=== PATIENT | female | born 1965 | race Caucasian/White ===

== ENCOUNTER 2020-07-27 06:18 | Day surgery (SDC) | payer BC ==
[~2020-07-27] VITALS: Ht 157.5 cm; Wt 70.0 kg
[~2020-07-27 06:18] MED LIST: ASPIR-LOW81 MG PO; LEVAQUIN500 MG PO; METOPROLOL SUC200 MG PO; MILK THISTLE500 MG PO; PRILOSEC OTC20 MG PO; VOLTAREN100 GM TOP
--- NOTE | 2020-07-27 06:41 | NUR ---
FELL APPROX 2 WEEKS AGO STATES IT WAS CAUSED BY MEDICATIONS SHE LONGER TAKES.
--- NOTE | 2020-07-27 07:52 | NUR ---
07/27/20 8474 Cathryn Vyas 8612 PATIENT ARRIVES TO PACU AWAKE. DENIES PAIN OR NAUSEA. RESP EVEN AND UNLABORED, ROOM AIR SATS 100%. TAKING SIPS OF WATER.
--- NOTE | 2020-07-27 08:53 | OR ---
[facility] [address] [place], [place] [address] Signed DATE OF OPERATION: 07/27/2020 SURGEON: Vinayak Sharma MD PREOPERATIVE DIAGNOSES: 1. Epigastric abdominal pain. 2. Nausea and vomiting. POSTOPERATIVE DIAGNOSIS: Small hiatal hernia. PROCEDURE: EGD with CLOtest and biopsies of the antrum. ESTIMATED BLOOD LOSS: None. INDICATIONS: Gracy is a 54-year-old female, asked to see me for upper endoscopy. She has epigastric abdominal pain with nausea and vomiting over the last three years. She has tried various self medications without much success. She gave up sucralfate and Nexium. It sounds like maybe she is still on Prilosec. She does not feel like anything is working. She did go through a colonoscopy back in 2017. Consequently, she is somewhat familiar with this idea of an upper endoscopy. In the office, I gave her a pamphlet on upper endoscopy and we looked at that together along with the risks including, but not limited to gas bloating, crampy abdominal pain, bleeding, perforation requiring surgery, and missed diagnosis. We also discussed the need for the IV conscious sedation, she had expressed understanding and wished to proceed. DESCRIPTION OF PROCEDURE: Gracy was taken into our endoscopy suite and placed in the supine semi-recumbent position. The posterior oropharynx was anesthetized with lidocaine spray. A bite block was utilized for the case. She utilized 9 mg of Versed and 125 mcg of fentanyl to cover the case. Even then she was awakened, looking around during the procedure. The adult gastroscope had been introduced and advanced under direct visualization of the camera into the third portion of the duodenum without difficulty. The duodenum and pyloric channel were unremarkable. Essentially, the stomach was unremarkable. We went ahead and took a biopsy of the antrum for pathologic review as well as CLOtest. There were no ulcerations. There was no gastritis. Upon retroflexion of scope, she does have a small hiatal hernia. There was no gastric or esophageal varices. The scope was then Electronically Signed By: VINAYAK SHARMA MD 07/27/20 0853 PATIENT NAME: GRACY JUAREZ OPERATIVE REPORT DATE OF : 61 REPORT #: [id number] PHYSICIAN: VINAYAK SHARMA MD PCP: AGUSTIN FARMER MD REPORT IS CONFIDENTIAL AND NOT TO BE RELEASED WITHOUT AUTHORIZATION [facility] [address] [place], [place] [address] Signed withdrawn up through the area of GE junction, which was compliant without stricture. She has minimal disruption to the Z-line. There was no Lerner's mucosa and no distal esophagitis. The middle and upper esophagus were unremarkable. After this, the gas has been suctioned out and the gastroscope removed. Gracy tolerated the procedure quite well. RECOMMENDATIONS: I will see Gracy back in my office in 7 to 14 days to review her results. She might also consider cutting down on the alcohol and smoking. Vinayak Sharma MD ALB/MODL /[id number] cc: MD Vinayak Chi MD Copies: AGUSTIN FARMER MD, ANDREW L MD ~ Electronically Signed By: VINAYAK SHARMA MD 07/27/20 0853 PATIENT NAME: GRACY JUAREZ ANN OPERATIVE REPORT DATE OF : 61 REPORT #: [id number] PHYSICIAN: VINAYAK SHARMA MD PCP: AGUSTIN FARMER MD REPORT IS CONFIDENTIAL AND NOT TO BE RELEASED WITHOUT AUTHORIZATION
--- NOTE | 2020-07-27 10:14 | NUR ---
PT ALERT, ORIENTED AND PLEASANT. PT SEEMS AT EASE, ALL QUESTIONS ASKED WERE ANSWERED. PT MENTIONED THAT HER WILL BE HERE TO TAKE HOME AFTER DC. PT REQUESTED PRAYER, WILL FOLLOW NEEDED
== END 2020-07-27 08:15 | disposition home or self-care (01) ==
LOC: OPS 06:18 → DS 06:18 → OPS 06:45 → DS 07:45 → OPS 08:15
PROVIDERS: ATTEND Colon & Rectal Surgery
PROC: 0DB78ZX Excision of Stomach, Pylorus, Via Natural or Artificial Opening Endoscopic, Diagnostic (ICD-10-PCS; principal; 2020-07-27 06:45)
DX: K44.9 Diaphragmatic hernia without obstruction or gangrene (principal); I10 Essential (primary) hypertension; F17.210 Nicotine dependence, cigarettes, uncomplicated; K21.9 Gastro-esophageal reflux disease without esophagitis; Z86.010 Personal history of colon polyps; Z79.82 Long term (current) use of aspirin; Z79.899 Other long term (current) drug therapy
CPT/HCPCS: 86677; G0500; J2250; J3010; J7121

== ENCOUNTER 2020-10-03 08:10 | Emergency (ER) | payer BC ==
[~2020-10-03] VITALS: Ht 157.5 cm; Wt 69.9 kg
[2020-10-03] MEDS ORDERED: ONDANSETRON ODT4 MG PO (15:46)
[2020-10-03] MEDS ORDERED: HYDROCODON-ACE1 EA10 PO (15:46)
== END 2020-10-03 15:55 | disposition home or self-care (01) ==
LOC: ED 08:10
DX: K31.89 Other diseases of stomach and duodenum (principal); D64.9 Anemia, unspecified; K80.20 Calculus of gallbladder without cholecystitis without obstruction; F17.200 Nicotine dependence, unspecified, uncomplicated; Z88.0 Allergy status to penicillin; Z79.899 Other long term (current) drug therapy; Z79.82 Long term (current) use of aspirin
CPT/HCPCS: 74177; 80053; 82378; 83690; 85025; 86301; 99284-25; Q9967

== ENCOUNTER 2020-10-17 06:23 | Day surgery (SDC) | payer BC, SELFPAY ==
[~2020-10-17] VITALS: Ht 157.5 cm; Wt 68.0 kg
[~2020-10-17 06:23] MED LIST changes: +HYDROCODON-ACE1 EA10 PO; +ONDANSETRON ODT4 MG PO
--- NOTE | 2020-10-17 08:09 | NUR ---
10/17/20 0809 Cathryn Vyas 0801 PATIENT ARRIVES TO PACU SLEEPING, AWAKENS WITH VERBAL STIMULI, BACK TO SLEEP WHEN NOT STIMULATED. RESP EVEN AND UNLABORED, NC AT 2 LITERS. 0805 PATIENT AWAKE OFF/ON. RESP EVEN AND UNLABORED, NC OFF.
--- NOTE | 2020-10-17 09:42 | OR ---
[facility] [address] [place], [place] [address] Signed DATE OF OPERATION: 10/17/2020 SURGEON: Vinayak Sharma MD PREOPERATIVE DIAGNOSES: 1. Epigastric abdominal pain. 2. Ultrasound and CT scan concerning for possible duodenal mass/pancreatic mass. POSTOPERATIVE DIAGNOSES: 1. Duodenal mass, 2nd portion. 2. Small hiatal hernia. PROCEDURES: EGD with CLOtest and biopsies of the duodenal mass, pyloric bulb, and antrum. ESTIMATED BLOOD LOSS: None. INDICATIONS: Gracy is a 55-year-old female, who came back in July of 2020 for her upper endoscopy. She had a small hiatal hernia at that time. The ultrasound showed what may have been air or vascular streaking in her liver. Common bile duct was normal at 2.5 mm. Pancreatic duct was normal at 2.2 mm. The gallbladder wall seemed to be thickened and irregular with some debris. We had made plans to proceed with her gallbladder surgery with an intraoperative cholangiogram rather than to a CT scan at that time. We knew if that was abnormal, she was going to need a CT scan. She was actually scheduled for her surgery tomorrow, but had worsening epigastric abdominal pain. She had been to the emergency room. CT scan on October 03, 2020 showed air in the gallbladder along with the bile ducts and a very thickened abnormal looking duodenum, which is contiguous with the head of the pancreas. No obvious pancreatic mass on that particular CT scan. She had been down to [place] expeditiously to see her hepatobiliary surgeon, Dr. Cristino Dutta. He asked her to have an expeditious repeat upper endoscopy here in [place], [place]. Therefore, she presents today in that regard. She is quite familiar with upper endoscopy. She knows there is risk including, but not limited to gas bloating, crampy abdominal pain, bleeding, perforation requiring surgery, and missed diagnosis. She also has done well with Versed and fentanyl in the past. She had expressed understanding and wished to proceed. DESCRIPTION OF PROCEDURE: Gracy was taken into our endoscopy suite and placed in the supine semi-recumbent Electronically Signed By: VINAYAK SHARMA MD 10/17/20 0942 PATIENT NAME: GRACY JUAREZ OPERATIVE REPORT DATE OF : 61 REPORT #: [id number] PHYSICIAN: VINAYAK SHARMA MD PCP: AGUSTIN BOWEN MD REPORT IS CONFIDENTIAL AND NOT TO BE RELEASED WITHOUT AUTHORIZATION [facility] [address] [place], [place] [address] Signed position. She was given a total of 6 mg of Versed and 100 mcg of fentanyl to cover the case. Lidocaine spray was utilized to anesthetize the posterior oropharynx. A bite block was placed during the case. The adult gastroscope had been introduced and advanced quite readily out into the 2nd portion of the duodenum under direct visualization of camera without difficulty. We encountered some abnormal protrusion of the duodenum and just beyond that we could see an ulcerated area and just to the left of that we could see what looks like a mass. It is very flat and without any normal mucosa. We took a couple of biopsies of the mass in the ulcerated area for pathologic review. The scope was then slowly withdrawn. We never could specifically see the ampulla of Vater with our forward viewing scope. The pyloric bulb was unremarkable along with the antrum. We went ahead and took biopsies of the pyloric bulb and antrum for pathologic review. In addition, a biopsy came out of the antrum for CLOtest. The incisura body and fundus of the stomach were unremarkable. Upon retroflexion of the scope, she does have a small hiatal hernia. The scope was withdrawn up through area of the GE junction, which was compliant without stricture. She has minimal disruption to the Z-line. No obvious Lerner's mucosa. Her distal middle and upper esophagus were unremarkable. After this, the gas was suctioned out and the gastroscope removed. Gracy tolerated the procedure quite well. RECOMMENDATIONS: I will see Gracy back in my office in 7 to 10 days to review her results. Vinayak Sharma MD ALB/MODL /[id number] cc: Agustin Bowen MD Chart Filed Incomplete MD Dr. Cristino Mora Electronically Signed By: VINAYAK SHARMA MD 10/17/20 0942 PATIENT NAME: GRACY JUAREZ OPERATIVE REPORT DATE OF : 61 REPORT #: [id number] PHYSICIAN: VINAYAK SHARMA MD PCP: AGUSTIN BOWEN MD REPORT IS CONFIDENTIAL AND NOT TO BE RELEASED WITHOUT AUTHORIZATION [address] [address] Signed Copies: AGUSTIN BOWEN MD CHART FILED INCOMPLETE VINAYAK SHARMA MD ~ Electronically Signed By: VINAYAK SHARMA MD 10/17/20 0942 PATIENT NAME: GRACY JUAREZ OPERATIVE REPORT DATE OF : 61 REPORT #: [id number] PHYSICIAN: VINAYAK SHARMA MD PCP: AGUSTIN BOWEN MD REPORT IS CONFIDENTIAL AND NOT TO BE RELEASED WITHOUT AUTHORIZATION
--- NOTE | 2020-10-20 17:22 | PATH ---
[facility] [address] [place], [place] [address] Signed SPECIMEN(S): A DUODENAL SECOND BIOPSY SPECIMEN(S): B ANTRUM/PYLORUS BIOPSY SPECIMEN(S): C DUODENAL BULB BIOPSY SPECIMEN SOURCE: A. DUODENAL SECOND BIOPSY B. ANTRUM/PYLORUS BIOPSY C. DUODENAL BULB BIOPSY CLINICAL HISTORY: Abd pain. Duodenal mass finding. MICROSCOPIC DESCRIPTION: Histologic sections of all submitted blocks are examined by light microscopy. These findings, together with the gross examination, support the pathologic diagnosis. FINAL PATHOLOGIC DIAGNOSIS: A. 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 - See Comment. B. Stomach, antrum/pylorus, biopsy: - Antral mucosa with chronic, inactive gastritis. - Negative for Helicobacter organisms on HE stain. - Negative for dysplasia or malignancy. C. Duodenum, bulb, biopsy: - Duodenal bulb mucosa with no histopathologic abnormality. - Negative for increased intraepithelial lymphocytes. - Negative for dysplasia or malignancy. COMMENT: Regarding specimen A: The provided history of a duodenal mass is noted. Sections demonstrate an ulcerated fragment of fibromuscular tissue with crushed, infiltrative atypical cells with focal gland formation and atypical mitoses. A pancytokeratin AE1/AE3 immunohistochemical stain (with appropriately staining controls) highlights the infiltrative cells. These findings are suspicious for invasive carcinoma, however crush artifact limits histologic evaluation. Correlation with endoscopic findings is recommended. As part of [facility]' Quality Improvement Program, part A of this case was reviewed by another member of our pathology staff. PATIENT NAME: GRACY JUAREZ PATHOLOGY DATE OF : 61 REPORT #: [id number] PHYSICIAN: ROHAN LOYA PCP: AGUSTIN FARMER MD REPORT IS CONFIDENTIAL AND NOT TO BE RELEASED WITHOUT AUTHORIZATION [facility] [address] [place], [place] [address] Signed A diagnostic alert was initiated by Dr. Hernandez on 10/20/20 (Dr. Yang to be called). NAL:cml:C2NR GROSS DESCRIPTION: Three specimens are received in three containers labeled with "JK". A. The specimen, labeled "JK, duodenal biopsy," is received in formalin and consists of two fragments of pink-kahn tissue (0.5 x 0.2 x 0.2 cm in aggregate). The specimen is submitted entirely in cassette (A1). B. The specimen, labeled "JK," and designated on the requisition "antrum/pylorus biopsy," is received in formalin and consists of one fragment of pink-kahn tissue (0.3 x 0.3 x 0.2 cm). The specimen is submitted entirely in cassette (B1). C. The specimen, labeled "JK," and designated on the requisition "duodenum biopsy," is received in formalin and consists of one fragment of pink-kahn tissue (0.3 x 0.2 x 0.2 cm). The specimen is submitted entirely in cassette (C1). AC (under the direct supervision of a pathologist) The Gross Description was prepared using a voice recognition system. The report was reviewed for accuracy; however, sound-alike word errors, addition and/or deletions may occur. If there is any question about this report, please contact Client Services. ADDITIONAL NOTES: Immunohistochemical and/or in situ hybridization studies were performed on this case with the appropriate positive controls that react as expected. This test was developed and its performance characteristics determined by [facility]. It has not been cleared or approved by the U.S. Food and Drug Administration. The FDA has determined that such clearance or approval is not necessary. This test is used for clinical purposes. It should not be regarded as investigational or for research. [facility] is certified under the Clinical Laboratory Improvement Amendments of 1988 (CLIA) as qualified to perform high complexity clinical laboratory testing. PERFORMING LABORATORY: The technical component was performed by [facility], [address] [place] [id number] (Resort Manager: Blanca Jeffery MD; CLIA# [id number]). Professional interpretation was performed by PATIENT NAME: GRACY JUAREZ PATHOLOGY DATE OF : 61 REPORT #: [id number] PHYSICIAN: JUANMiserWare VINCENZO PCP: AGUSTIN FARMER MD REPORT IS CONFIDENTIAL AND NOT TO BE RELEASED WITHOUT AUTHORIZATION [facility] [address] [place], [place] [address] [facility], [address] [place], [place] [address] (CLIA# [id number]). Diagnostician: Tasneem Hernandez MD Pathologist Electronically Signed 10/20/2020 Copies: ~ PATIENT NAME: GRACY JUAREZ PATHOLOGY DATE OF : 61 REPORT #: [id number] PHYSICIAN: ROHAN PATHOLOGY PCP: AGUSTIN FARMER MD REPORT IS CONFIDENTIAL AND NOT TO BE RELEASED WITHOUT AUTHORIZATION
== END 2020-10-17 08:30 | disposition home or self-care (01) ==
LOC: OPS 06:23 → DS 06:23 → OPS 06:45 → DS 07:30 → OPS 08:30
PROVIDERS: ATTEND Colon & Rectal Surgery
PROC: 0DB98ZX Excision of Duodenum, Via Natural or Artificial Opening Endoscopic, Diagnostic (ICD-10-PCS; principal; 2020-10-17 06:45)
DX: D13.2 Benign neoplasm of duodenum (principal); K31.89 Other diseases of stomach and duodenum; K44.9 Diaphragmatic hernia without obstruction or gangrene; I10 Essential (primary) hypertension; K21.00 Gastro-esophageal reflux disease with esophagitis, without bleeding; F17.200 Nicotine dependence, unspecified, uncomplicated; Z88.0 Allergy status to penicillin
CPT/HCPCS: 86677; 99153; G0500; J2250; J3010; J7121

== ENCOUNTER 2021-04-20 08:09 | Emergency (ER) | payer BC, OTHER ==
[~2021-04-20] VITALS: Ht 157.5 cm; Wt 67.6 kg
--- OUTSIDE RECORDS SUMMARY | 2021-04-20 08:16 | XMS ---
PreManage Notification: GRACY JUAREZ Security Meal Cook Events No recent Security Events currently on file CRITERIA MET - [facility] There are no care providers on record at this time. Fabian has no Care Guidelines for this patient. Julia VISIT COUNT (12 MO.) 2 [facility] TOTAL 2 NOTE: Visits indicate total known visits. 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
== END 2021-04-20 09:45 | disposition home or self-care (01) ==
LOC: ED 08:09
DX: M19.042 Primary osteoarthritis, left hand (principal); I10 Essential (primary) hypertension; F17.200 Nicotine dependence, unspecified, uncomplicated; Z88.0 Allergy status to penicillin; Z79.899 Other long term (current) drug therapy; Z79.82 Long term (current) use of aspirin
CPT/HCPCS: 73130; 99283-25

== ENCOUNTER 2022-03-18 07:20 | Emergency (ER) | payer OTHER ==
[~2022-03-18] VITALS: Ht 157.5 cm; Wt 49.2 kg
[2022-03-18] MEDS ORDERED: AMLODIPINE BESYL5 MG PO (07:33)
[2022-03-18] MEDS ORDERED: PREDNISONE20 MG PO (09:52)
[2022-03-18] MEDS ORDERED: VENTOLIN HFA18 GM INH (09:52)
[2022-03-18] MEDS ORDERED: DOXYCYCLINE HY100 MG PO (09:52)
--- NOTE | 2022-03-20 11:42 | EKG ---
[facility] [address] [facility] [place] [address] Signed Normal sinus rhythm Normal ECG No previous ECGs available Confirmed by TITA ADAMES MD ([id number]) on 03/20/2022 11:42:39 AM Electronically Signed By: TITA ADAMES MD 03/20/22 1142 PATIENT NAME: GRACY JUAREZ ANN Electrocardiogram DATE OF : 61 PHYSICIAN: TITA ADAMES MD REPORT #: [id number] REPORT IS CONFIDENTIAL AND NOT TO BE RELEASED WITHOUT AUTHORIZATION
== END 2022-03-18 10:05 | disposition home or self-care (01) ==
LOC: ED 07:20
DX: J40 Bronchitis, not specified as acute or chronic (principal); R21 Rash and other nonspecific skin eruption; R79.89 Other specified abnormal findings of blood chemistry; I10 Essential (primary) hypertension; F17.200 Nicotine dependence, unspecified, uncomplicated; Z88.0 Allergy status to penicillin; Z79.899 Other long term (current) drug therapy; Z20.822 Contact with and (suspected) exposure to COVID-19
CPT/HCPCS: 36415; 71045; 80053; 83880; 84484; 85025; 85651; 86140; 86850; 86900; 86901; 87502; 93005; 93010; 94640; 99284-25; C9803; J1100; U0003